=== PATIENT | male | born 1995 | race Caucasian/White ===

== ENCOUNTER 2017-12-26 21:57 | Emergency (ER) | payer BC ==
[2017-12-26] MEDS ORDERED: ONDANSETRON 4 MG/2 ML VIAL IVPUSH ONE (21:59)
[2017-12-26] MEDS ORDERED: SODIUM CHLORIDE 1,000 ML IV STA (21:59)
--- NOTE | 2017-12-26 22:00 | PDOC ---
History of Present Illness - General History Source: Patient Exam Limitations: No Limitations - History of Present Illness Initial Comments: 12/26/17 22:13 The patient is a 22 year old male, with no significant PMH who presents to the emergency department with multiple episodes of nonbloody, nonbilious vomit since this evening. Patient states he ate a burger and approximately 30 minutes later began vomiting. Patient reports associated abdominal pain secondary to the multiple episodes of vomit. Patient also endorses diaphoresis and chills. Patient denies taking any medications today. The patient denies chest pain, shortness of breath, headache and dizziness. Denies fever, chills, diarrhea and constipation. Denies dysuria, frequency, urgency and hematuria. Allergies: NKA Past surgical history: None reported. Social history: No reported alcohol, drug or cigarette use. <Lori Olmstead - Last Filed: 12/26/17 22:13> <Graciela Watts - Last Filed: 12/27/17 03:05> - General Chief Complaint: Nausea/Vomiting Stated Complaint: VOMITING Time Seen by Provider: 12/26/17 21:59 Past History <Lori Olmstead - Last Filed: 12/26/17 22:13> - Suicide/Smoking/Psychosocial Hx Smoking Status: No Smoking History: Never smoked Number of Cigarettes Smoked Daily: 0 Hx Alcohol Use: No Drug/Substance Use Hx: No Substance Use Type: None <Graciela Watts - Last Filed: 12/27/17 03:05> - Past Medical History Allergies/Adverse Reactions: Allergies Allergy/AdvReac Type Severity Reaction Status Date / Time No Known Allergies Allergy Verified 12/26/17 21:59 Home Medications: Ambulatory Orders Ondansetron [Zofran Odt -] 4 mg SL TID PRN #10 od.tablet 12/27/17 Review of Systems - Review of Systems Able to Perform ROS?: Yes Comments:: 12/26/17 22:10 ADULT ROS GENERAL/CONSTITUTIONAL: No fever or chills. No weakness. HEAD, EYES, EARS, NOSE AND THROAT: No change in vision. No ear pain or discharge. No sore throat. CARDIOVASCULAR: No chest pain or shortness of breath. RESPIRATORY: No cough, wheezing, or hemoptysis. GASTROINTESTINAL: (+) Vomiting. No diarrhea or constipation. GENITOURINARY: No dysuria, frequency, or change in urination. MUSCULOSKELETAL: No joint or muscle swelling or pain. No neck or back pain. SKIN: No rash NEUROLOGIC: No headache, vertigo, loss of consciousness, or change in strength/ sensation. ENDOCRINE: No increased thirst. No abnormal weight change. HEMATOLOGIC/LYMPHATIC: No anemia, easy bleeding, or history of blood clots. ALLERGIC/IMMUNOLOGIC: No hives or skin allergy. <Lori Olmstead - Last Filed: 12/26/17 22:13> *Physical Exam - Vital Signs Last Vital Signs Temp Pulse Resp BP Pulse Ox 98.5 F 56 L 16 129/95 100 12/26/17 22:01 12/26/17 22:01 12/26/17 22:01 12/26/17 22:01 12/26/17 22:01 - Physical Exam Comments: 12/26/17 22:11 ADULT EXAM GENERAL: Awake, alert, and fully oriented, in no acute distress HEAD: No signs of trauma EYES: PERRLA, EOMI, sclera anicteric, conjunctiva clear ENT: Auricles normal inspection, hearing grossly normal, nares patent, oropharynx clear without exudates. (+) Dry mucous membranes. NECK: Normal ROM, supple, no lymphadenopathy, JVD, or masses LUNGS: Breath sounds equal, clear to auscultation bilaterally. No wheezes, and no crackles HEART: Regular rate and rhythm, normal S1 and S2, no murmurs, rubs or gallops ABDOMEN: (+) Mild generalized tenderness without involuntary guarding or rebound. Soft, normoactive bowel sounds. No masses. EXTREMITIES: Normal range of motion, no edema. No clubbing or cyanosis. No cords, erythema, or tenderness NEUROLOGICAL: Cranial nerves II through XII grossly intact. Normal speech, normal gait SKIN: Warm, Dry, normal turgor, no rashes or lesions noted. <Lori Olmstead - Last Filed: 12/26/17 22:13> ED Treatment Course - Medications Given in the ED: ED Medications Discontinued Medications Generic Name Dose Route Start Last Admin Trade Name Freq PRN Reason Stop Dose Admin Ondansetron HCl 4 mg 12/26/17 21:59 12/26/17 22:07 Zofran Injection IVPUSH 12/26/17 22:00 4 mg ONCE ONE Administration <Lori Olmstead - Last Filed: 12/26/17 22:13> - LABORATORY CBC & Chemistry Diagram: 12/26/17 23:00 12/26/17 23:00 <Graciela Watts - Last Filed: 12/27/17 03:05> Progress Note - Progress Note Progress Note: Documentation has been prepared under my direction and personally reviewed by me in its entirety. I attest that this documented accurately reflects all work, treatment, procedures and medical decision making performed by me. <Graciela Watts - Last Filed: 12/27/17 03:05> Medical Decision Making - Medical Decision Making As noted above, this 22-year-old man presents with nausea and vomiting which began soon after eating a hamburger prepared outside. No diarrhea reported. No fever/chills or sick contacts noted, although patient recently returned home from college. Exam as noted. Patient appears clinically dehydrated. Physical exam of abdomen reveals tenderness of the abdominal wall muscles without other localized tenderness or peritoneal signs. Patient received IV hydration 2 L normal saline and Zofran 4 mg IV. Laboratory and evaluation notable for white blood cell count 21,000 and evidence of prerenal azotemia with BUN of 25 and creatinine of 1.1. No electrolyte abnormalities noted. Patient reported resolution of nausea but had some residual abdominal pain after hydration and Zofran IV. Repeat abdominal exam again showed tenderness of abdominal wall muscles without other significant tenderness. Toradol 30 mg IV administered. After Toradol IV, patient is comfortable without any further abdominal wall muscle pain. He successfully drank a cup of water without nausea or vomiting. Patient was discharged with prescription for Zofran ODT 4 mg up to 3 times a day as needed for recurrent nausea. He has been advised to continue clear liquids and advance diet cautiously. He should return to the ER via has recurrent persistent vomiting or develops fever/severe abdominal pain. <Graciela Watts - Last Filed: 12/27/17 03:05> *DC/Admit/Observation/Transfer - Attestations Scribe Attestion: 12/26/17 22:11 Documentation prepared by Lori Olmstead, acting as medical doctor nuclear medicine for Graciela Watts MD. <Lori Olmstead - Last Filed: 12/26/17 22:13> <Graciela Watts - Last Filed: 12/27/17 03:05> Diagnosis at time of Disposition: Gastroenteritis - Discharge Dispostion Disposition: HOME Condition at time of disposition: Stable - Prescriptions Prescriptions: Ondansetron [Zofran Odt -] 4 mg SL TID PRN #10 od.tablet PRN Reason: Nausea - Patient Instructions Printed Discharge Instructions: DI for Bacterial Gastroenteritis -- Adult Additional Instructions: clear liquids, advance diet cautiously ZofranODT 4mg up to 3 times a day as needed for pain return if vomiting returns or you have severe abdominal pain/fever followup with your doctor within 3-4 days
[2017-12-26 22:06] VITALS: BP 129/95; PULSE 56; TEMP 98.5; BMI 18.7
[2017-12-26 23:20] LABS: HEMATOCRIT 48.2 % (35.4-49); HEMOGLOBIN 16.5 GM/dl (11.7-16.9); MCHC 34.2 g/dl (32.0-35.9); MEAN CELL VOLUME 90.8 fl (80-96); MEAN PLT VOLUME 10.4 fl (7.5-11.1); PLATELET COUNT 242 K/MM3 (134-434); RDW 11.9 % (11.9-15.9); WHITE BLOOD COUNT 21.3 K/mm3 (4.0-10.8)
[2017-12-26 23:29] LABS: ALBUMIN 5.3 g/dl (3.5-5.0); ALK PHOS 92 U/L (32-92); ANION GAP 12 MMOL/L (8-16); BLOOD UREA NITROGEN 25 mg/dl (7-18); CHLORIDE 100 mmol/L (98-107); CO2 26 mmol/L (22-28); CREATININE 1.1 mg/dl (0.6-1.3); GLUCOSE,RANDOM 106 mg/dl (74-106); SGOT/AST 29 U/L (10-42); SGPT/ALT 22 U/L (10-40); SODIUM 138 mmol/L (136-145); TOT PROT 8.1 g/dl (6.4-8.3)
[2017-12-26] MEDS ORDERED: KETOROLAC TROMETHAMINE 30 MG/1 ML VIAL IVPUSH ONE (23:53)
[2017-12-26] MEDS ORDERED: KETOROLAC TROMETHAMINE 30 MG/1 ML VIAL ONE (23:59)
== END 2017-12-27 00:47 | disposition home or self-care (01) ==
LOC: FER 21:57
PROC: 3E0333Z Introduction of Anti-inflammatory into Peripheral Vein, Percutaneous Approach (ICD-10-PCS; principal; 2017-12-26)
PROC: 3E0337Z Introduction of Electrolytic and Water Balance Substance into Peripheral Vein, Percutaneous Approach (ICD-10-PCS; 2017-12-26)
PROC: 3E033GC Introduction of Other Therapeutic Substance into Peripheral Vein, Percutaneous Approach (ICD-10-PCS; 2017-12-26)
DX: K52.9 Noninfective gastroenteritis and colitis, unspecified (principal)
CPT/HCPCS: 36415; 80053; 85025; 99282-25; J7030